=== PATIENT | male | born 1945 | race Caucasian/White ===

== ENCOUNTER 2020-11-06 18:30 | Emergency (ER) | payer MEDICARE, SELFPAY ==
[~2020-11-06] VITALS: Ht 170.2 cm; Wt 73.6 kg
[2020-11-06] MEDS ORDERED: LISI20TA33 PO (21:06)
[2020-11-06] MEDS ORDERED: FERR1ELX PO (21:06)
[2020-11-06] MEDS ORDERED: PACE200T PO (21:06)
[2020-11-06] MEDS ORDERED: MELA3TAB49 PO (21:06)
[2020-11-06] MEDS ORDERED: ACET1TAB55 PO (21:06)
[2020-11-06] MEDS ORDERED: ATOR1TAB21 PO (21:06)
[2020-11-06] MEDS ORDERED: FURO40TA2 PO (21:06)
[2020-11-06] MEDS ORDERED: KLOR20TA42 FT (21:06)
[2020-11-06] MEDS ORDERED: WARF-58 PO (21:06)
[2020-11-06] MEDS ORDERED: NITR0.4S14 SL (21:06)
[2020-11-06] MEDS ORDERED: ECOT81TA5 PO (21:06)
[2020-11-06] MEDS ORDERED: OMEP40CA4 PO (21:06)
[2020-11-06] MEDS ORDERED: METO75TA PO (21:06)
[2020-11-06] MEDS ORDERED: FLOM0.4C39 PO (21:06)
[2020-11-07 00:16] VITALS: BP 144/65
== END 2020-11-07 00:34 | disposition home or self-care (01) ==
LOC: M ED 18:30 → EDBD 18:30 → M ED 11-07 00:34
DX: K94.29 Other complications of gastrostomy (principal); Z79.899 Other long term (current) drug therapy; Z79.82 Long term (current) use of aspirin; Z79.01 Long term (current) use of anticoagulants

== ENCOUNTER 2020-11-08 15:38 | Emergency (ER) | payer MEDICARE, SELFPAY ==
[~2020-11-08] VITALS: Ht 172.7 cm; Wt 74.5 kg
[~2020-11-08 15:38] MED LIST: ACET1TAB55 PO; ATOR1TAB21 PO; ECOT81TA5 PO; FERR1ELX PO; FLOM0.4C39 PO; FURO40TA2 PO; KLOR20TA42 FT; LISI20TA33 PO; MELA3TAB49 PO; METO75TA PO; NITR0.4S14 SL; OMEP40CA4 PO; PACE200T PO; WARF-58 PO
--- NOTE | 2020-11-08 18:06 | REPVR ---
PROCEDURE INFORMATION: Exam: CT Abdomen Without Contrast Exam date and time: 11/08/2020 5:29 PM Age: 75 years old Clinical indication: Device placement; Gi device; Peg tube; Prior surgery; Surgery date: <1 month; Additional info: Assess placement of peg tube TECHNIQUE: Imaging protocol: Computed tomography images of the abdomen without contrast. Radiation optimization: All CT scans at this facility use at least one of these dose optimization techniques: automated exposure control; mA and/or kV adjustment per patient size (includes targeted exams where dose is matched to clinical indication); or iterative reconstruction. COMPARISON: No relevant prior studies available. FINDINGS: Lungs: Compressive atelectasis both lung bases. Pleural space: Small bilateral pleural effusions. 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 Liver: Normal. No mass. Gallbladder and bile ducts: Mild thickening of the gallbladder wall with sludge within the lumen of the gallbladder. No calcified stones demonstrated. Clinical correlation to exclude acute gallbladder inflammation suggested. Pancreas: There is diffuse pancreatic atrophy. Spleen: Normal. No splenomegaly. Adrenals: Normal. No mass. Kidneys and ureters: Multiple simple appearing renal cysts measure up to 1.9 cm in the left kidney. No follow-up suggested. Nonobstructive right renal calculi. Stomach and bowel: See "Intraperitoneal space" finding. Intraperitoneal space: Multiple gas locules and collections of gas demonstrated in the peritoneal cavity, finding likely related to recent J PEG surgery. Clinical correlation to exclude other etiologies including intestinal perforation. Lymph nodes: Unremarkable. No enlarged lymph nodes. Vasculature: The aortoiliac vessels demonstrate moderate atherosclerotic calcification. Bones/joints: Moderate central spinal stenosis L3-L4 and moderate to severe central spinal stenosis L4-L5. Bulging annulus L5-S1. 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 No complex features. There is soft tissue edema demonstrated in the abdominal wall, flanks and buttock regions consistent with anasarca. IMPRESSION: 1. Multiple gas locules and collections of gas demonstrated in the peritoneal cavity, finding likely related to recent J PEG surgery. Clinical correlation to exclude other etiologies including intestinal perforation. 2. Mild thickening of the gallbladder wall with sludge within the lumen of the gallbladder. No calcified stones demonstrated. Clinical correlation to exclude acute gallbladder inflammation suggested. 3. There is diffuse pancreatic atrophy. 4. Multiple simple appearing renal cysts measure up to 1.9 cm in the left kidney. No follow-up suggested. 5. Anasarca. COMMENTS: Consistent with the [employer]'s Incidental Findings Committee white paper (J Am Kayleigh Radiol 2018): Any incidental renal lesion less than 1 cm or classified as too small to characterize, or any incidental cystic renal lesion characterized as simple-appearing, is likely benign. No follow-up imaging is recommended for these lesions per consensus recommendations based on imaging criteria. Electronically signed by: Carlos Deshpande On 11/08/2020 18:06:05 PM
[2020-11-08 21:15] VITALS: BP 143/62
--- NOTE | 2020-11-08 23:54 | CR ---
CONSULTATION DATE: 11/08/2020 REASON FOR CONSULTATION: Plugged gastrostomy tube. HISTORY OF PRESENT ILLNESS: The patient is a pleasant 75-year-old man who had recently undergone an aortic valve replacement in [place]. Apparently during his hospital stay in [place] he developed some dysphagia and a percutaneous endoscopic gastrostomy tube was placed. This was on or about the 29 of October. He was subsequently discharged to rehabilitation in [place]. His G-tube had apparently been pulled out accidentally perhaps 3-4 days after placement and this was reinserted in [place]. He has continued his rehab in [place]. He has been receiving medications and apparently feedings through the #16 Setswana G-tube. He was seen 2 days ago at the Emergency Department at [facility] for a clogged tube and it was possible at that time to flush the tube. He has now presented again with a blocked tube which has stymied the Emergency Department provider to fix it. I am now consulted to see if I might be able to address the clogged tube. ALLERGIES: The patient has no known drug allergies. MEDICATIONS: Multiple and as listed in the E.R. record. PAST MEDICAL HISTORY: The patient's past medical history is significant for: 1. Fairly recent valve replacement. 2. Prior cardiac valve surgery. 3. History of congestive heart failure. 4. Atrial fibrillation. 5. Hypertension. 6. There is a reported history of pulmonary embolism. 7. Gastric reflux. 8. Recently has had some encephalopathy. 9. Swallowing difficulties. FAMILY HISTORY: Noncontributory. REVIEW OF SYSTEMS: The patient's review of systems is also largely noncontributory other than as noted in the history of the present illness. PHYSICAL EXAMINATION: GENERAL APPEARANCE: The patient is a pleasant older man sitting up in a chair at the side of the stretcher. He is alert and appears oriented. He denies any abdominal pain. VITAL SIGNS: His vital signs are stable with a pulse in the 80's and a good blood pressure. Room air saturations are normal. ABDOMEN: His gastrostomy tube is located in the left upper quadrant. The tube is a #16 Setswana LEYDI replacement gastrostomy tube with a retention balloon. There is a retention disk on the abdominal wall, held in place by a zip tie that appears to be quite snug around the hub of the retention disk. There is some particulate white or guillen material which appears to be impacted in the tube near the retention disk. LABORATORY STUDIES: The patient had no laboratory studies. IMAGING: A CT scan of the abdomen was done which revealed the tube to be evidently in place in approximately the mid distal body of the stomach. The balloon was inflated and it appears to be well within the lumen of the stomach. There were multiple pockets of free air within the abdomen which are likely related to his previous tube removal and replacement, but he is not having any abdominal tenderness or pain. He does have some bilateral pleural effusions noted. IMPRESSION: Obstructed gastrostomy tube now approximately 10 days post placement, but only approximately 5 days post replacement after it had previously been removed. RECOMMENDATIONS: At this point I would be reluctant to try removing this tube and replacing it through the same tract. It had become dislodged once before, and it may not have a well formed tract to prevent separation of the stomach from the anterior abdominal wall. I therefore proceeded more aggressively to try to de-clog the tube. First I removed the zip tie that had been placed around the retention disk as it appeared to be impinging the lumen somewhat at this level. Some of the particulate matter could be aspirated back out of the tube or flushed from the tube. I tried several times to flush the tube. The tube was then probed with a 1.7 mm diameter stylette from a pediatric endotracheal tube. This could be advanced just about to the end of the tube as I estimated it. Following this, I was able with vigorous flushing to flush the tube completely. There was a small amount of lightly yellowish fluid that could be aspirated back from the tube and it flushed readily after this. The patient tolerated the procedure well, without apparent complications. I advised him that he could be released back to the half-way in [place]. I advised the P.A. in the Emergency Department to recommend to the half-way that they not try to put whatever medication it was that had clogged the tube through the tube again. The patient does not need to follow up in my office in regards to this. [facility]
--- NOTE | 2020-11-09 12:13 | ED PDOC ---
Post-Departure Follow-Up radiology report faxed to Candida Diggs MD Nov 09, 2020 12:13
== END 2020-11-08 21:33 | disposition home or self-care (01) ==
LOC: M ED 15:38
DX: K94.23 Gastrostomy malfunction (principal); I11.0 Hypertensive heart disease with heart failure; I50.9 Heart failure, unspecified; I48.91 Unspecified atrial fibrillation; K21.9 Gastro-esophageal reflux disease without esophagitis; G93.40 Encephalopathy, unspecified; Z79.899 Other long term (current) drug therapy; Z79.82 Long term (current) use of aspirin; Z79.01 Long term (current) use of anticoagulants

== ENCOUNTER 2020-11-10 12:06 | Emergency (ER) | payer BC, MEDICARE ==
[~2020-11-10] VITALS: Ht 172.7 cm; Wt 74.5 kg
[~2020-11-10 12:06] MED LIST changes: -KLOR20TA42 FT; +POTA-141 FT
[2020-11-10] MEDS ORDERED: GASTROGRAFIN SOLUTION 30ML (Q9963) PEG STA (14:31)
--- NOTE | 2020-11-10 15:08 | REP ---
INDICATION: assess for PEG placement; contrast injection to assess pleas COMPARISON: None. TECHNIQUE: Supine view of the abdomen and pelvis. FINDINGS: Contrast via percutaneous gastrostomy tube remains within the stomach and proximal duodenum. There is no evidence for extravasation. The bowel gas pattern is without obstruction or perforation. No organomegaly. No abnormal calcifications. Skeletal structures are intact. IMPRESSION: Peg tube in satisfactory position. No extravasation. <Electronically signed by Elliott Dillon > 11/10/20 [id number]
[2020-11-10 15:51] VITALS: BP 147/60
--- NOTE | 2020-11-10 17:44 | RO ---
OPERATIVE NOTE DATE OF OPERATION: 11/10/2020 PREOPERATIVE DIAGNOSIS: Clogged gastrostomy tube. POSTOPERATIVE DIAGNOSIS: Clogged gastrostomy tube. PROCEDURE PERFORMED: Change of 16 Indian gastrostomy tube to an 18 Indian gastrostomy tube SURGEON: Lorne Gutierrez MD ANESTHESIA: None INDICATIONS FOR THE PROCEDURE: The patient is a 75-year-old man who presented to the emergency department at [facility] from a nursing facility in [place] where he has been recovering from a valve replacement that was apparently complicated by development of swallowing difficulties and dysphagia. A G-tube was placed in [place] for feeding and medications. He was seen in the emergency department on the 08 of November with a clogged tube with medication fragments in the tube. I was able to unclog this and he now returns again with the tube clogged. The tube had been placed initially on or about the 29 of October but had come out several days later and was replaced in [place]. PROCEDURE: The patient was counseled for change of the tube. I think he is far enough out from the placement and then replacement that there is an adequate tract to change the tube without significant concern about leakage but I did warn him of the potential risks of changing the tube to include leakage into the abdomen and he was agreeable with proceeding. The area was inspected and the current [facility] 16 Indian tube was then removed. The balloon was deflated by removing 10 mL of fluid and the existing tube was removed. I then inserted an 18 Indian Sims catheter to ensure that the tract was large enough to accommodate an 18 Indian tube. He tolerated this well. I then removed the Sims catheter and the 18 Indian EndoVive single-lumen gastrostomy tube was inserted. The balloon was inflated with 6 mL of fluid. He tolerated this well. No fluid would aspirate, though fluid could easily be injected through the tubing. A contrast study was done with injection of water soluble contrast which outlined the stomach and the proximal duodenum. He tolerated this all well and will be released back to [place]. [facility]
== END 2020-11-10 16:21 | disposition home or self-care (01) ==
LOC: EDBD 12:06 → M ED 12:06
DX: K94.29 Other complications of gastrostomy (principal); I11.0 Hypertensive heart disease with heart failure; I50.9 Heart failure, unspecified; I48.91 Unspecified atrial fibrillation; K21.9 Gastro-esophageal reflux disease without esophagitis; Z79.899 Other long term (current) drug therapy; Z79.82 Long term (current) use of aspirin
CPT/HCPCS: 43762; 74018; 99284; Q9963